=== PATIENT | female | born 1950 | race Caucasian/White ===

== ENCOUNTER → 2018-04-30 | Outpatient (CLI) | payer MEDICARE ==
[~2018-04-30] MED LIST: ASCO500T8 PO; CHOL5000 PO; LORA-439 PO; NIAC500T9 PO; SIMV5TAB5 PO; UBID100C24 PO; [UNRECOGNIZED DRUG - OTHER] PO
== END | disposition home or self-care (01) ==
LOC: STAR 14:04
PROVIDERS: ATTEND Urology
DX: Z01.818 Encounter for other preprocedural examination (principal); D49.511 Neoplasm of unspecified behavior of right kidney
CPT/HCPCS: 93005

== ENCOUNTER 2018-05-12 13:26 | Day surgery (SDC) | payer MEDICARE ==
[~2018-05-12] VITALS: Ht 162.6 cm; Wt 59.8 kg
[~2018-05-12 13:26] MED LIST changes: +DEXAMETHASONE 4 MG/ML, 1ML ONE; +ONDANSETRON 2MG/ML, 2ML ONE; +PROPOFOL 10 MG/ML, 20ML ONE
[2018-05-12 13:55] VITALS: BP 134/78
[2018-05-12] MEDS ORDERED: LACTATED RINGERS 1,000 ML IV SCH (14:00)
[2018-05-12 15:12] LABS: CULTURE INDICATED? YES; MICROSCOPIC INDICATED
[2018-05-12] MEDS ORDERED: FENTANYL PF 100 MCG/2ML ONE ×2 (15:17→17:39)
[2018-05-12] MEDS ORDERED: MIDAZOLAM 1 MG/ML, 2ML ONE (15:20)
[2018-05-12] MEDS ORDERED: PROMETHAZINE 25 MG/ML, 1ML IV PRN (16:00)
[2018-05-12] MEDS ORDERED: ACETAMINOPHEN 325 MG TABLET PO PRN (16:00)
[2018-05-12] MEDS ORDERED: OXYcodone 5 MG/5 ML ORAL.SOL UDC PO PRN (16:00)
[2018-05-12] MEDS ORDERED: FENTANYL PF 100 MCG/2ML IV PRN (16:00)
[2018-05-12] MEDS ORDERED: LABETALOL 5MG/ML, 20ML IV PRN (16:00)
[2018-05-12] MEDS ORDERED: ALBUTEROL SULFATE 2.5 MG/3 ML NPPB PRN (16:00)
[2018-05-12] MEDS ORDERED: hydrALAzine 20 MG/ML, 1ML IV PRN (16:00)
[2018-05-12] MEDS ORDERED: HYDROmorphone 2 MG/ML, 1ML IVPush PRN (16:00)
[2018-05-12] MEDS ORDERED: ACETAMINOPHEN 650 MG/20.3 ML UDC ONE (17:39)
[2018-05-12] MEDS ORDERED: OXYcodone 5 MG/5 ML ORAL.SOL UDC ONE (17:40)
[2018-05-12] MEDS ORDERED: OMNIPAQUE 350 MG/ML, 50 ML BOTTLE ONE (19:49)
[2018-05-12] MEDS ORDERED: TAMS-11 PO (20:15)
[2018-05-12] MEDS ORDERED: PHEN100T90 PO (20:16)
[2018-05-12] MEDS ORDERED: TRIM100T PO (20:20)
[2018-05-12] MEDS ORDERED: HYDR-3240 PO (20:21)
[2018-05-12] MEDS ORDERED: DOCU-131 PO (20:22)
== END 2018-05-12 21:20 | disposition home or self-care (01) ==
LOC: OR 13:26 → 4NOR 18:32 → OR 21:20
PROVIDERS: ATTEND Urology
DX: C65.1 Malignant neoplasm of right renal pelvis (principal); N13.5 Crossing vessel and stricture of ureter without hydronephrosis; Z87.891 Personal history of nicotine dependence
CPT/HCPCS: 52332; 52341; 74420; 81001; 87086; 88112; C1758; C1769; C2617; J1100; J2250; J2405; J2704; J3010; J7120; Q9967; G0378